=== PATIENT | male | born 1960 | race Two or more races ===

== ENCOUNTER 2020-04-17 06:56 | Emergency (ER) | payer OTHER ==
[~2020-04-17] VITALS: Ht 167.6 cm; Wt 77.5 kg
[2020-04-17] MEDS ORDERED: ONDANSETRON 2MG/ML, 2ML IVPush ONE (08:00)
[2020-04-17] MEDS ORDERED: SODIUM CHLORIDE 0.9% 1,000ML IVBOLUS ONE (08:00)
--- NOTE | 2020-04-17 08:15 | NUR ---
PT C/O NAUSEA/VOMITING THAT STARTED THIS AM. PT ALSO HAS DIZZINESS WITH MOVEMENT. PT DENIES ABD PAIN, CHEST PAIN, DIARRHEA, OR SOB.
[2020-04-17] MEDS ORDERED: ONDANSETRON 2MG/ML, 2ML ONE (08:17)
[2020-04-17 08:43] LABS: ALANINE AMINOTRANSFERASE 31 U/L (12-78); ALBUMIN 4.2 g/dL (3.4-5.0); ANION GAP 8 mmol/L (5-15); CALCIUM 8.8 mg/dL (8.5-10.1); CHLORIDE 106 mmol/L (98-107)
[2020-04-17 08:46] LABS: BASOPHILS % (AUTO) 1 % (0-1); EOSINOPHILS % (AUTO) 1 % (1-7); LYMPHOCYTES % (AUTO) 20 % (22-44); MEAN CORPUSCULAR HEMOGLOBIN 31.5 pg (27.5-34.5); MEAN CORPUSCULAR HGB CONC 34.2 g/dL (33.2-36.2); MEAN PLATELET VOLUME 7.7 fL (7.4-10.4); MONOCYTES % (AUTO) 4 % (2-9); NEUTROPHILS % (AUTO) 75 % (42-75); PLATELET COUNT 245 x10^3/uL (130-400); RED BLOOD COUNT 5.01 x10^6/uL (4.38-5.82); RED CELL DISTRIBUTION WIDTH 13.2 % (9.4-14.8)
[2020-04-17 08:48] LABS: ALKALINE PHOSPHATASE 83 U/L (45-117); BILIRUBIN,TOTAL 0.4 mg/dL (0.2-1.0); CREATININE 1.07 mg/dL (0.7-1.3); TOTAL PROTEIN 7.6 g/dL (6.4-8.2); TROPONIN I < 0.015 ng/mL (0.000-0.045)
--- NOTE | 2020-04-17 09:00 | NUR ---
AMBULATED TO BATHROOM WITHOUT ASSISTANCE STEADY GAIT
[2020-04-17 09:07] LABS: MD NO
[2020-04-17 09:24] LABS: MICROSCOPIC NOT IND
--- NOTE | 2020-04-17 10:10 | NUR ---
PA RE-EVALUATING PT
[2020-04-17 10:46] VITALS: BP 133/88
== END 2020-04-17 10:49 | disposition home or self-care (01) ==
LOC: ED 07:45
DX: J06.9 Acute upper respiratory infection, unspecified (principal); R11.2 Nausea with vomiting, unspecified; Z20.828 Contact with and (suspected) exposure to other viral communicable diseases; R94.31 Abnormal electrocardiogram [ECG] [EKG]; E11.9 Type 2 diabetes mellitus without complications
CPT/HCPCS: 71045; 80053; 81003; 82962; 83605; 84484; 85025; 87635; 93005; 96361; 96374; 99285; J2405; J7030